=== PATIENT | male | born 1950 | race Caucasian/White ===

== ENCOUNTER 2017-12-15 11:44 | Emergency (ER) | payer BC ==
[2017-12-15 11:48] VITALS: PULSE 70; RESP 18; TEMP 97.9; O2SAT 99
--- NOTE | 2017-12-15 12:12 | C.PDOC ---
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 PS SLIPPED BACKWARDS ON ICE, LANDED ON BUTTOCKS. AMBUL ON SCENE. NO LOC, [place]. DENIES HO CHRONIC LBP EXAM NAD NONTOXIC HEENT ATRAUM NECK SUPPLE NONTEND BACK PAIN W ROM FULL ROM; NO SPINAL TEND ATRAUM NEURO INTACT EXT B/L HANDS ATRAUM NONTEND SKIN INTACT - HPI Time Seen by Provider: 12/15/17 11:55 Chief Complaint (Nursing): Back Pain History Per: Patient History/Exam Limitations: no limitations Onset/Duration Of Symptoms: Sudden Onset (PATIENT SITTER) Past Medical History Reviewed: Historical Data, Nursing Documentation, Vital Signs Vital Signs: Last Vital Signs Temp 97.9 F 12/15/17 11:45 Pulse 70 12/15/17 13:10 Resp 18 12/15/17 13:10 BP 132/74 12/15/17 13:10 Pulse Ox 99 12/15/17 13:10 - Medical History PMH: Arthritis Family History: States: No Known Family Hx - Social History Hx Alcohol Use: No Hx Substance Use: No - Immunization History Hx Tetanus Toxoid Vaccination: No Hx Influenza Vaccination: Yes (12/15/2017) Hx Pneumococcal Vaccination: No Review Of Systems Except As Marked, All Systems Reviewed And Found Negative. Gastrointestinal: Negative for: Nausea, Vomiting Musculoskeletal: Positive for: Back Pain (lower back), Hand Pain (bilateral hands), Other (Left knee injury) Skin: Negative for: Rash Neurological: Negative for: Weakness, Numbness Physical Exam - Physical Exam Appears: Non-toxic, No Acute Distress Skin: Warm, Dry, No Rash Head: Atraumatic, Normacephalic Oral Mucosa: Moist Lips: Normal Appearing Neck: Normal, Normal ROM, No Midline Cervical Tenderness, Supple Back: No Paraspinal Tenderness, Other (Full ROM with pain. No spinal tenderness) Extremity: Normal ROM, No Swelling Neurological/Psych: Oriented x3, Normal Speech, Normal Motor ED Course And Treatment O2 Sat by Pulse Oximetry: 99 (RA) Pulse Ox Interpretation: Normal - Other Rad X-Ray - L Spine X-Ray: Viewed By Me, Read By Radiologist Interpretation: PROCEDURE: Radiographs of the Lumbar Spine. HISTORY: TRAUMA. COMPARISON: None available. FINDINGS: BONES: Alignment appears satisfactory. Osseous demineralization. Degenerative changes including osteophyte formation. 10 mm anterolisthesis of L4 on L5. No acute displaced fracture identified. Facet hypertrophy. DISC SPACES: Intervertebral disc space narrowing most prominent at L4-L5 and L5-S1. OTHER FINDINGS: Atherosclerotic calcifications of the aorta. Pelvic surgical clips. Pelvic calcifications, likely phleboliths. Moderate to severe constipation. 9 mm calcification within the left upper quadrant measures approximately 8 mm, possibly related to the left kidney. IMPRESSION: Osseous demineralization. Degenerative changes including osteophyte formation and intervertebral disc space narrowing as above. 10 mm anterolisthesis of L4 on L5. Moderate to severe constipation. 9 mm calcification within the left upper quadrant measures approximately 8 mm, possibly related to the left kidney. Additional findings as above. Medical Decision Making Medical Decision Making: PLAN: * X-Ray - L Spine * Lidoderm TD * Flexeril PO * Tylenol PO * Toradol IM Disposition Counseled Patient/Family Regarding: Studies Performed, Diagnosis, Need For Followup, Rx Given - Disposition Referrals: YOUR,PMD [Other] Disposition: HOME/ ROUTINE Disposition Time: 12:46 Condition: IMPROVED Additional Instructions: APPLY PATCH TO AFFECTED AREA. MAX 3 PATCHES AT A TIME. REMOVE PATCH 12 HOURS AFTER INITIAL APPLICATION. ALTERNATE 12 HOURS ON, 12 HOURS OFF. Prescriptions: Acetaminophen with Codeine [Tylenol with Codeine No. 3 300 mg-30 mg] 1 tab PO Q6 PRN #12 tab PRN Reason: Pain, Moderate (4-7) Cyclobenzaprine [Flexeril] 10 mg PO TID #15 tab Ibuprofen [Motrin] 600 mg PO Q6 #30 tab Lidocaine 5% [Lidoderm] 1 ea TD PRN PRN #10 patch PRN Reason: Pain, Moderate (4-7) Instructions: Contusion in Adults (ED) Forms: [employer] (Thai) - Clinical Impression Clinical Impression: Contusion of back, Hand contusion - Scribe Statement The provider has reviewed the documentation as recorded by the Chelsyibe Carla Osorio Provider Attestation: All medical record entries made by the Chelsyibana were at my direction and personally dictated by me. I have reviewed the chart and agree that the record accurately reflects my personal performance of the history, physical exam, medical decision making, and the department course for this patient. I have also personally directed, reviewed, and agree with the discharge instructions and disposition.
[2017-12-15] MEDS ORDERED: Lidocaine 5% Patch TD STA (12:14)
[2017-12-15] MEDS ORDERED: Lidocaine 5% Patch TD ONE (12:28)
--- NOTE | 2017-12-15 12:40 | RAD ---
PROCEDURE: Radiographs of the Lumbar Spine. HISTORY: TRAUMA COMPARISON: None available. FINDINGS: BONES: Alignment appears satisfactory. Osseous demineralization. Degenerative changes including osteophyte formation. 10 mm anterolisthesis of L4 on L5. No acute displaced fracture identified. Facet hypertrophy. DISC SPACES: Intervertebral disc space narrowing most prominent at L4-L5 and L5-S1. OTHER FINDINGS: Atherosclerotic calcifications of the aorta. Pelvic surgical clips. Pelvic calcifications, likely phleboliths. Moderate to severe constipation. 9 mm calcification within the left upper quadrant measures approximately 8 mm, possibly related to the left kidney. IMPRESSION: Osseous demineralization. Degenerative changes including osteophyte formation and intervertebral disc space narrowing as above. 10 mm anterolisthesis of L4 on L5. Moderate to severe constipation. 9 mm calcification within the left upper quadrant measures approximately 8 mm, possibly related to the left kidney. Additional findings as above.
[2017-12-15 13:10] VITALS: BP 132/74
== END 2017-12-15 13:10 | disposition home or self-care (01) ==
LOC: C.ER 11:44
DX: S30.0XXA Contusion of lower back and pelvis, initial encounter (principal); S60.222A Contusion of left hand, initial encounter; S60.221A Contusion of right hand, initial encounter; W00.0XXA Fall on same level due to ice and snow, initial encounter
CPT/HCPCS: 72100; 96372; 99283; J1885